=== PATIENT | male | born 1955 | race Caucasian/White ===

== ENCOUNTER 2023-08-20 13:59 | Emergency (ER) | payer MEDICARE, MEDICAID ==
[2023-08-20] MEDS ORDERED: Sodium Chloride 0.9% 500 ML IV SCH (15:15)
[2023-08-20] MEDS ORDERED: Iopamidol 612 MG/ML 100 ML Bottle IVPUSH ONE (15:20)
[2023-08-20 20:04] VITALS: PULSE 77
[2023-08-20 21:02] VITALS: BP 102/71
== END 2023-08-20 20:30 ==
LOC: LL.ED 13:59
DX: E80.6 Other disorders of bilirubin metabolism (principal); K83.8 Other specified diseases of biliary tract; K86.89 Other specified diseases of pancreas; R16.0 Hepatomegaly, not elsewhere classified; K82.9 Disease of gallbladder, unspecified; E78.00 Pure hypercholesterolemia, unspecified; I10 Essential (primary) hypertension; E66.9 Obesity, unspecified; F17.210 Nicotine dependence, cigarettes, uncomplicated; Z79.82 Long term (current) use of aspirin; Z79.4 Long term (current) use of insulin; Z79.84 Long term (current) use of oral hypoglycemic drugs; Z68.28 Body mass index [BMI] 28.0-28.9, adult
CPT/HCPCS: 74177; 82947; 86707; 86803; 87350; 96360; 99285-25; J7040; Q9967

== ENCOUNTER 2024-11-11 18:03 | Emergency (ER) | payer MEDICARE, OTHER ==
[2024-11-11 18:38] LABS: ALANINE AMINOTRANSFERASE,ALT 57 U/L (12-78); ALBUMIN 1.6 g/dL (3.4-5.0); ALKALINE PHOSPHATASE 177 IU/L (46-116); ANION GAP 10.6 meq/L (7-15); ASPARTATE AMNIOTRANSFERASE,AST 37 U/L (15-37); BILIRUBIN TOTAL 0.3 mg/dL (0.2-1.0); BLOOD UREA NITROGEN,BUN 12 mg/dL (7-18); CALCIUM 7.6 mg/dL (8.5-10.1); CARBON DIOXIDE,CO2 25.8 mmol/L (21.0-32.0); CHLORIDE,CL 108 mmol/L (98-107); CREATININE 1.25 mg/dL (0.51-1.17); ESTIMATED GFR 62 mL/min (>=60); GLUCOSE RANDOM 206 mg/dL (70-99); MAGNESIUM 0.8 mg/dL (1.8-2.4); POTASSIUM,K 4.4 mmol/L (3.5-5.1); PROTEIN TOTAL,TP 5.9 g/dL (6.4-8.2); SODIUM,NA 140 mmol/L (136-145)
[2024-11-11] MEDS: Magnesium Sulf/Wat 4 GM/100 mL 4 GM in Premix Bag 1 BAG IV ONE ×2 (19:05→23:21)
== END 2024-11-12 11:15 ==
LOC: LL.ED 18:03
DX: E83.42 Hypomagnesemia (principal); I10 Essential (primary) hypertension; E78.00 Pure hypercholesterolemia, unspecified; E11.9 Type 2 diabetes mellitus without complications; Z79.899 Other long term (current) drug therapy; Z79.84 Long term (current) use of oral hypoglycemic drugs; Z86.73 Personal history of transient ischemic attack (TIA), and cerebral infarction without residual deficits; Z79.01 Long term (current) use of anticoagulants
CPT/HCPCS: 36415; 80053; 83735; 96365; 96366; 99284; 99284-25; J3475